=== PATIENT | female | born 1945 | race Caucasian/White ===

== ENCOUNTER 2023-10-20 16:22 | Inpatient (IN) | payer MEDICARE ==
[~2023-10-20] VITALS: Ht 157.5 cm; Wt 103.9 kg
[2023-10-20 17:02] LABS: BASOPHILS # (AUTO) 0.1 K/UL (0.0-0.2); BASOPHILS % (AUTO) 0.5 % (0.0-2.0); DIFFERENTIAL COMMENT 0; EOSINOPHILS # (AUTO) 0.4 K/uL (0.0-0.7); EOSINOPHILS % (AUTO) 4.5 % (0.0-7.0); HEMATOCRIT 41.5 % (31.2-41.9); HEMOGLOBIN 13.5 g/dL (10.9-14.3); LYMPHOCYTES # (AUTO) 1.6 K/uL (0.8-4.8); LYMPHOCYTES % (AUTO) 16.7 % (20.5-51.5); MEAN CORPUSCULAR HEMOGLOBIN 25.5 uug (24.7-32.8); MEAN CORPUSCULAR HGB CONC 33 g/dL (32.3-35.6); MEAN CORPUSCULAR VOLUME 78.7 fL (75.5-95.3); MONOCYTES # (AUTO) 0.5 K/uL (0.1-1.30); MONOCYTES % (AUTO) 5.4 % (0.0-11.0); NEUTROPHILS # (AUTO) 7.1 K/uL (1.8-8.9); NEUTROPHILS % (AUTO) 72.9 % (38.5-71.5); PLATELET COUNT (AUTO) 338 K/uL (179-408); RED BLOOD CELL COUNT(AUTO) 5.28 MIL/uL (3.63-4.92); RED CELL DISTRIBUTION WIDTH 21.7 % (12.3-17.7); WHITE BLOOD COUNT (AUTO) 9.7 K/uL (3.8-11.8)
[2023-10-20 17:21] LABS: ALANINE AMINOTRANSFERASE 17 U/L (14-59); ALKALINE PHOSPHATASE 92 U/L (50-136); ASPARTATE AMINOTRANSFERASE 17 U/L (15-37); BILIRUBIN,DIRECT 0.1 mg/dL (0.0-0.2); BILIRUBIN,TOTAL 0.7 mg/dL (0.2-1.0); CALCIUM 8.6 mg/dL (8.5-10.1); CARBON DIOXIDE 26 mmol/L (21-32); CHLORIDE 108 mmol/L (98-107); CREATININE 0.9 mg/dL (0.6-1.3); GLUCOSE 141 mg/dL (74-106); POTASSIUM 4.2 mmol/L (3.5-5.1); SODIUM SERUM 142 mmol/L (136-145); TOTAL PROTEIN, SERUM 7.1 g/dL (6.4-8.2); UREA NITROGEN, BLOOD 11 mg/dL (7-18)
[2023-10-20] MEDS ORDERED: FAMO10TA41 PO (17:24)
[2023-10-20] MEDS ORDERED: NA P133E RC (17:24)
[2023-10-20] MEDS ORDERED: BISA10SU61 RC (17:24)
[2023-10-20] MEDS ORDERED: MAGN400O6 PO (17:24)
[2023-10-20] MEDS ORDERED: MULT-594 PO (17:24)
[2023-10-20] MEDS ORDERED: ACET325T53 PO (17:24)
[2023-10-20] MEDS ORDERED: CHOL200010 PO (17:24)
[2023-10-20] MEDS ORDERED: QUET50TA PO (17:24)
[2023-10-20] MEDS ORDERED: ATOR10TA PO (17:24)
[2023-10-20] MEDS ORDERED: ACET-2030 PO (17:24)
[2023-10-20] MEDS ORDERED: ASCO500T10 PO (17:24)
[2023-10-20] MEDS ORDERED: FERR325T30 PO (17:24)
[2023-10-20] MEDS ORDERED: HALO50AM2 IM (17:24)
[2023-10-20 17:38] LABS: ETHANOL < 3 MG/DL (0-10)
[2023-10-20] MEDS ORDERED: MAGNESIUM HYDROXIDE 30 ML LIQUID UDC PO PRN ×2 (18:15→20:30)
[2023-10-20] MEDS ORDERED: ACETAMINOPHEN ES 500 MG TABLET- SA PATIENTS-PAIN ONLY PO PRN (18:15)
[2023-10-20] MEDS ORDERED: ACETAMINOPHEN 325 MG TABLET-SA PATIENTS-PAIN ONLY PO PRN (18:15)
[2023-10-20 19:23] LABS: *BILIRUBIN,URIN NEGATIVE (NEGATIVE); *BLOOD, URINE NEGATIVE (NEGATIVE); *CLARITY,URINE CLEAR (CLEAR); *COLOR,URINE YELLOW (YELLOW); *KETONES,URINE NEGATIVE (NEGATIVE); *PROTEIN,URINE NEGATIVE (NEGATIVE); *UROBILINOGEN,URINE 0.2 E.U./dl (NORMAL); NITRITE, URINE NEGATIVE (NEGATIVE); UGLUCOSE NEGATIVE (NEGATIVE)
[2023-10-20 19:27] LABS: LEUKOCYTE ESTERASE ,URINE NEGATIVE (NEGATIVE)
[2023-10-20 19:41] LABS: *AMPHETAMINE, URINE NEGATIVE (NEGATIVE); *BARBITURATE, URINE NEGATIVE (NEGATIVE); *BENZODIAZEPINE, URINE NEGATIVE (NEGATIVE); *CANNABINOID, URINE NEGATIVE (NEGATIVE); *COCCAINE, URINE NEGATIVE (NEGATIVE); *OPIATE, URINE NEGATIVE (NEGATIVE); *PHENCYCLIDINE SCREEN,URINE NEGATIVE (NEGATIVE); FENTANYL, URINE NEGATIVE (NEGATIVE)
[2023-10-20] MEDS ORDERED: ACETAMINOPHEN 325 MG TABLET PO PRN (20:30)
[2023-10-20] MEDS ORDERED: MAG HYDROX/AL HYDROX/SIMETH 30 ML LIQUID UDC PO PRN (20:30)
[2023-10-20] MEDS: ATORVASTATIN 10 MG TABLET PO SCH (21:00)
[2023-10-20 21:08] VITALS: BP 137/68; TEMP 98.7; O2SAT 96
[2023-10-20] MEDS: BLOOD SUGAR DIAGNOSTIC 1 EACH STRIP VI ONE (22:13)
[2023-10-21] MEDS: TEMAZEPAM 7.5 MG CAPSULE PO PRN (00:57)
[2023-10-21 07:55] VITALS: BP 111/57; TEMP 98.3; O2SAT 98
[2023-10-21] MEDS ORDERED: Medication Not On Formulary EA (Cholecalciferol (Vitamin D3) (Vitamin D3) 1 CAP) PO SCH (09:00)
[2023-10-21] MEDS ORDERED: Medication Not On Formulary EA (Multivitamins (Multivitamin) 1 TAB) PO SCH (09:00)
[2023-10-21] MEDS ORDERED: FAMOTIDINE 20 MG PO SCH (09:00)
[2023-10-21] MEDS: CHOLECALCIFEROL 1,000 UNIT TABLET PO SCH (09:14)
[2023-10-21] MEDS: ASCORBIC ACID 500 MG TABLET PO SCH (09:14)
[2023-10-21] MEDS: FAMOTIDINE 20 MG TABLET PO SCH (09:14)
[2023-10-21] MEDS ORDERED: ACETAMINOPHEN ES 500 MG TABLET PO PRN ×3 (11:45→16:00)
[2023-10-21] MEDS ORDERED: ACETAMINOPHEN 325 MG TABLET PO PRN (12:00)
[2023-10-21] MEDS ORDERED: ACET-2030 PO (14:54)
[2023-10-21 16:31] VITALS: BP 126/65; TEMP 98.2; O2SAT 98
[2023-10-21] MEDS: QUETIAPINE FUMARATE 25 MG TABLET PO SCH ×2 (17:51→20:24)
[2023-10-21 20:00] VITALS: BP 161/83; TEMP 98.1; O2SAT 95
[2023-10-21 20:15] VITALS: BP 142/77
[2023-10-21] MEDS: OLANZAPINE 10 MG VIAL IM ONE (20:51)
[2023-10-22 07:30] VITALS: BP 142/77
[2023-10-22] MEDS: MULTIVITAMINS,THERAPEUTIC TABLET PO SCH (08:38)
[2023-10-22] MEDS: DIVALPROEX SPRINKLE 125 MG CAP.SPRINK PO SCH (13:00)
[2023-10-22] MEDS: QUETIAPINE FUMARATE 25 MG TABLET PO SCH (13:00)
[2023-10-22 15:16] VITALS: BP 142/77
[2023-10-22] MEDS: CLOTRIMAZOLE 1% CREAM 30 GM TUBE TOP SCH (16:42)
[2023-10-22 21:05] VITALS: BP 120/58; TEMP 98
[2023-10-22 23:06] VITALS: O2SAT 98
[2023-10-23] MEDS: DIVALPROEX SPRINKLE 125 MG CAP.SPRINK PO SCH (12:55)
[2023-10-23 20:00] VITALS: BP 138/75; TEMP 97.5; O2SAT 92
[2023-10-23] MEDS: LORAZEPAM 1 MG TABLET PO PRN (20:23)
[2023-10-24 09:00] VITALS: BP 108/57; TEMP 98; O2SAT 98
[2023-10-24 20:00] VITALS: BP 111/68; TEMP 98.1; O2SAT 98
[2023-10-25 07:54] VITALS: BP 116/51; TEMP 98; O2SAT 96
[2023-10-25] MEDS: REMEDY ESSENTIAL ZINC PASTE 113 GM TOP SCH (08:33)
[2023-10-25 15:08] VITALS: BP 113/55; TEMP 98; O2SAT 98
[2023-10-25 20:00] VITALS: BP 138/79; TEMP 98.1; O2SAT 97
[2023-10-26 07:54] VITALS: BP 122/63; TEMP 98.1; O2SAT 97
[2023-10-26 16:12] VITALS: BP 121/72; TEMP 98.1; O2SAT 96
[2023-10-26 20:18] VITALS: BP 119/53; TEMP 98.2; O2SAT 99
[2023-10-27 09:06] VITALS: BP 112/65; TEMP 97.9; O2SAT 97
[2023-10-27 16:00] VITALS: BP 130/65; TEMP 97.9; O2SAT 96
[2023-10-27 20:00] VITALS: BP 111/66; TEMP 97.9; O2SAT 95
[2023-10-28 08:18] VITALS: BP 108/58; TEMP 98.4; O2SAT 97
[2023-10-28 16:32] VITALS: BP 122/62; TEMP 98.2; O2SAT 97
[2023-10-28 20:00] VITALS: BP 108/76; TEMP 98; O2SAT 98
[2023-10-29 07:48] VITALS: BP 128/71; TEMP 98; O2SAT 98
[2023-10-29 15:44] VITALS: BP 123/71; TEMP 98; O2SAT 98
[2023-10-29 20:00] VITALS: BP_SYST 106; BP_SYST 134; BP_DIAS 64; BP_DIAS 66; BP_DIAS 77; TEMP 97.7; TEMP 97.8; TEMP 98.1; O2SAT 95; O2SAT 97
[2023-10-30 03:45] VITALS: BP 160/89; TEMP 97.2; O2SAT 95
[2023-10-30 08:05] VITALS: BP 145/63; TEMP 98.2; O2SAT 98
[2023-10-30 15:42] VITALS: BP 136/61; TEMP 98.2; O2SAT 98
[2023-10-30 19:45] VITALS: BP 140/64; TEMP 98.1; O2SAT 96
[2023-10-30] MEDS: DIVALPROEX 250 MG TABLET.DR PO SCH (20:07)
[2023-10-31 08:00] VITALS: BP 142/63; TEMP 98.2; O2SAT 98
[2023-10-31] MEDS: risperiDONE 0.25 MG TABLET PO SCH (13:25)
[2023-10-31 15:15] VITALS: BP 136/66; TEMP 98.2; O2SAT 91
[2023-10-31 19:54] VITALS: BP 140/64; TEMP 98.1; O2SAT 93
[2023-11-01 07:30] VITALS: BP 142/65; TEMP 98.4; O2SAT 94
[2023-11-01 15:58] VITALS: BP 133/65; TEMP 98.4; O2SAT 94
[2023-11-01] MEDS: risperiDONE 0.5 MG TABLET PO SCH (17:11)
[2023-11-01 20:51] VITALS: BP 140/60; TEMP 98.3; O2SAT 92
[2023-11-02 07:31] LABS: ALANINE AMINOTRANSFERASE 11 U/L (14-59); ALBUMIN 2.9 g/dL (3.4-5.0); ALKALINE PHOSPHATASE 80 U/L (50-136); ASPARTATE AMINOTRANSFERASE 6 U/L (15-37); BILIRUBIN,TOTAL 0.7 mg/dL (0.2-1.0); CALCIUM 8.7 mg/dL (8.5-10.1); CARBON DIOXIDE 28 mmol/L (21-32); CHLORIDE 100 mmol/L (98-107); CREATININE 0.9 mg/dL (0.6-1.3); GLUCOSE 95 mg/dL (74-106); POTASSIUM 4.1 mmol/L (3.5-5.1); SODIUM SERUM 134 mmol/L (136-145); TOTAL PROTEIN, SERUM 6.7 g/dL (6.4-8.2); UREA NITROGEN, BLOOD 10 mg/dL (7-18)
[2023-11-02 07:36] VITALS: BP 129/59; TEMP 98.3; O2SAT 96
[2023-11-02 16:29] VITALS: BP 130/67; TEMP 98.1; O2SAT 96
[2023-11-02 20:00] VITALS: BP 121/55; TEMP 97.6; O2SAT 95
[2023-11-03 08:05] VITALS: BP 148/77; TEMP 98.1; O2SAT 96
[2023-11-03 16:42] VITALS: BP 123/68; TEMP 98.1; O2SAT 96
[2023-11-03 19:48] VITALS: BP 146/66; TEMP 98.1; O2SAT 96
[2023-11-04 07:35] VITALS: BP 162/75; TEMP 98.2; O2SAT 96
[2023-11-04 10:26] LABS: BASOPHILS # (AUTO) 0.1 K/UL (0.0-0.2); BASOPHILS % (AUTO) 0.8 % (0.0-2.0); EOSINOPHILS # (AUTO) 0.5 K/uL (0.0-0.7); EOSINOPHILS % (AUTO) 6.2 % (0.0-7.0); HEMATOCRIT 41.5 % (31.2-41.9); HEMOGLOBIN 13.9 g/dL (10.9-14.3); LYMPHOCYTES # (AUTO) 1.6 K/uL (0.8-4.8); LYMPHOCYTES % (AUTO) 20.6 % (20.5-51.5); MEAN CORPUSCULAR HEMOGLOBIN 26.2 uug (24.7-32.8); MEAN CORPUSCULAR HGB CONC 33 g/dL (32.3-35.6); MEAN CORPUSCULAR VOLUME 78.4 fL (75.5-95.3); MONOCYTES # (AUTO) 0.6 K/uL (0.1-1.30); MONOCYTES % (AUTO) 7.4 % (0.0-11.0); NEUTROPHILS # (AUTO) 5.1 K/uL (1.8-8.9); PLATELET COUNT (AUTO) 272 K/uL (179-408); RED CELL DISTRIBUTION WIDTH 18.8 % (12.3-17.7); WHITE BLOOD COUNT (AUTO) 7.8 K/uL (3.8-11.8)
[2023-11-04 10:41] LABS: DIFFERENTIAL COMMENT 1
[2023-11-04 10:46] LABS: ALANINE AMINOTRANSFERASE 17 U/L (14-59); ALKALINE PHOSPHATASE 80 U/L (50-136); ASPARTATE AMINOTRANSFERASE 9 U/L (15-37); BILIRUBIN,TOTAL 0.7 mg/dL (0.2-1.0); CALCIUM 8.6 mg/dL (8.5-10.1); CARBON DIOXIDE 32 mmol/L (21-32); CHLORIDE 100 mmol/L (98-107); CREATININE 0.8 mg/dL (0.6-1.3); GLUCOSE 108 mg/dL (74-106); MAGNESIUM 2.2 mg/dL (1.8-2.4); POTASSIUM 3.6 mmol/L (3.5-5.1); SODIUM SERUM 136 mmol/L (136-145); UREA NITROGEN, BLOOD 10 mg/dL (7-18)
[2023-11-04 10:49] LABS: AMMONIA < 10 umol/L (11-32)
[2023-11-04 16:06] VITALS: BP 142/75; TEMP 98; O2SAT 96
[2023-11-04 19:52] VITALS: BP 140/72; TEMP 98.1; O2SAT 95
[2023-11-05 07:38] VITALS: BP 132/84; TEMP 98; O2SAT 92
[2023-11-05] MEDS: OLANZAPINE 10 MG VIAL IM STA (14:45)
[2023-11-05 15:26] VITALS: BP 111/64; TEMP 98; O2SAT 92
[2023-11-05] MEDS: HALOPERIDOL LACTATE 5 MG/1 ML VIAL IM STA (16:50)
[2023-11-05] MEDS: LORAZEPAM 2 MG/1 ML VIAL IM STA (16:50)
[2023-11-05 20:00] VITALS: BP 135/80; TEMP 98; O2SAT 92
[2023-11-06 07:47] VITALS: BP 132/79; TEMP 98; O2SAT 91
[2023-11-06 09:04] LABS: ALANINE AMINOTRANSFERASE 11 U/L (14-59); ALBUMIN 3.1 g/dL (3.4-5.0); ALKALINE PHOSPHATASE 92 U/L (50-136); ASPARTATE AMINOTRANSFERASE 12 U/L (15-37); BILIRUBIN,TOTAL 0.8 mg/dL (0.2-1.0); CALCIUM 8.7 mg/dL (8.5-10.1); CARBON DIOXIDE 26 mmol/L (21-32); CHLORIDE 99 mmol/L (98-107); CREATININE 0.9 mg/dL (0.6-1.3); GLUCOSE 91 mg/dL (74-106); MAGNESIUM 2.2 mg/dL (1.8-2.4); POTASSIUM 4.2 mmol/L (3.5-5.1); SODIUM SERUM 135 mmol/L (136-145); TOTAL PROTEIN, SERUM 7.3 g/dL (6.4-8.2); UREA NITROGEN, BLOOD 10 mg/dL (7-18); VALPROIC ACID 69 ug/mL (50-100)
[2023-11-06 09:12] LABS: BASOPHILS # (AUTO) 0.1 K/UL (0.0-0.2); BASOPHILS % (AUTO) 0.6 % (0.0-2.0); DIFFERENTIAL COMMENT 0; EOSINOPHILS # (AUTO) 0.8 K/uL (0.0-0.7); EOSINOPHILS % (AUTO) 7.7 % (0.0-7.0); HEMATOCRIT 45.5 % (31.2-41.9); HEMOGLOBIN 15.2 g/dL (10.9-14.3); LYMPHOCYTES # (AUTO) 2.1 K/uL (0.8-4.8); MEAN CORPUSCULAR HEMOGLOBIN 26.2 uug (24.7-32.8); MEAN CORPUSCULAR HGB CONC 33 g/dL (32.3-35.6); MEAN CORPUSCULAR VOLUME 78.4 fL (75.5-95.3); MONOCYTES # (AUTO) 0.8 K/uL (0.1-1.30); MONOCYTES % (AUTO) 8.2 % (0.0-11.0); NEUTROPHILS # (AUTO) 6.3 K/uL (1.8-8.9); NEUTROPHILS % (AUTO) 62.5 % (38.5-71.5); PLATELET COUNT (AUTO) 289 K/uL (179-408); RED CELL DISTRIBUTION WIDTH 18.5 % (12.3-17.7); WHITE BLOOD COUNT (AUTO) 10.1 K/uL (3.8-11.8)
[2023-11-06] MEDS: risperiDONE 0.5 MG TABLET PO SCH (09:44)
[2023-11-06] MEDS: risperiDONE 1 MG TABLET PO SCH (13:08)
[2023-11-06 15:24] VITALS: BP 103/58; TEMP 98; O2SAT 99
[2023-11-06 20:00] VITALS: BP 115/59; TEMP 97.1; O2SAT 95
[2023-11-06 21:26] LABS: *BILIRUBIN,URIN NEGATIVE (NEGATIVE); *BLOOD, URINE NEGATIVE (NEGATIVE); *CLARITY,URINE CLEAR (CLEAR); *COLOR,URINE YELLOW (YELLOW); *KETONES,URINE NEGATIVE (NEGATIVE); *PROTEIN,URINE NEGATIVE (NEGATIVE); *UROBILINOGEN,URINE 0.2 E.U./dl (NORMAL); LEUKOCYTE ESTERASE ,URINE NEGATIVE (NEGATIVE); NITRITE, URINE NEGATIVE (NEGATIVE); UGLUCOSE NEGATIVE (NEGATIVE)
[2023-11-07 07:30] VITALS: BP 131/83; TEMP 97.6; O2SAT 90
[2023-11-07] MEDS: risperiDONE 1 MG TABLET PO SCH (17:46)
[2023-11-07 20:00] VITALS: BP 119/72; TEMP 98; O2SAT 92
[2023-11-07 20:30] VITALS: BP 145/58; TEMP 97.8; O2SAT 95
[2023-11-08 15:06] VITALS: BP 131/63; TEMP 98.4; O2SAT 96
[2023-11-08 20:00] VITALS: BP 110/52; TEMP 97.6; O2SAT 96
[2023-11-09 07:53] VITALS: BP 125/55; TEMP 98.1; O2SAT 96
[2023-11-09 12:41] LABS: BASOPHILS # (AUTO) 0.3 K/UL (0.0-0.2); BASOPHILS % (AUTO) 2.7 % (0.0-2.0); EOSINOPHILS % (AUTO) 9.2 % (0.0-7.0); HEMATOCRIT 45.2 % (31.2-41.9); HEMOGLOBIN 14.4 g/dL (10.9-14.3); LYMPHOCYTES % (AUTO) 9.6 % (20.5-51.5); MEAN CORPUSCULAR HEMOGLOBIN 25.3 uug (24.7-32.8); MEAN CORPUSCULAR HGB CONC 32 g/dL (32.3-35.6); MEAN CORPUSCULAR VOLUME 79.5 fL (75.5-95.3); MONOCYTES # (AUTO) 0.8 K/uL (0.1-1.30); MONOCYTES % (AUTO) 7.7 % (0.0-11.0); NEUTROPHILS # (AUTO) 7.4 K/uL (1.8-8.9); NEUTROPHILS % (AUTO) 70.8 % (38.5-71.5); PLATELET COUNT (AUTO) 307 K/uL (179-408); RED BLOOD CELL COUNT(AUTO) 5.68 MIL/uL (3.63-4.92); RED CELL DISTRIBUTION WIDTH 18.6 % (12.3-17.7); WHITE BLOOD COUNT (AUTO) 10.4 K/uL (3.8-11.8)
[2023-11-09 12:43] LABS: DIFFERENTIAL COMMENT 1
[2023-11-09 14:33] LABS: BAND % (MANUAL) 1 % (0-10); EOSINOPHILS % (MANUAL) 7 % (0-8); LYMPHOCYTES % (MANUAL) 11 % (20-40); MONOCYTES % (MANUAL) 6 % (2-10); NEUTROPHILS % (MANUAL) 75 % (42-75); PLATELET ESTIMATE ADEQUATE
[2023-11-09 14:34] LABS: ANISOCYTOSIS 1+; TEAR DROP CELLS 1+
[2023-11-09 16:43] VITALS: BP 122/53; TEMP 98; O2SAT 96
[2023-11-09 20:00] VITALS: BP 122/69; TEMP 97.5; O2SAT 91
[2023-11-10 08:39] VITALS: BP 135/70; TEMP 97.6; O2SAT 96
[2023-11-10 15:57] VITALS: BP 107/59; TEMP 97.9; O2SAT 96
[2023-11-10 19:57] VITALS: BP 102/58; TEMP 98.1; O2SAT 95
[2023-11-11 07:41] LABS: ALANINE AMINOTRANSFERASE 11 U/L (14-59); ALBUMIN 2.6 g/dL (3.4-5.0); ALKALINE PHOSPHATASE 76 U/L (50-136); ASPARTATE AMINOTRANSFERASE 9 U/L (15-37); BILIRUBIN,TOTAL 0.5 mg/dL (0.2-1.0); CALCIUM 8.5 mg/dL (8.5-10.1); CARBON DIOXIDE 31 mmol/L (21-32); CHLORIDE 102 mmol/L (98-107); CREATININE 0.9 mg/dL (0.6-1.3); GLUCOSE 91 mg/dL (74-106); POTASSIUM 4.1 mmol/L (3.5-5.1); SODIUM SERUM 138 mmol/L (136-145); TOTAL PROTEIN, SERUM 6.2 g/dL (6.4-8.2); UREA NITROGEN, BLOOD 10 mg/dL (7-18); VALPROIC ACID 83 ug/mL (50-100)
[2023-11-11 07:49] VITALS: BP 139/79; TEMP 97.8; O2SAT 96
[2023-11-11] MEDS ORDERED: CLOT30CR24 TOP ×2 (10:27→10:36)
== END 2023-11-11 11:30 | DRG 885 ==
LOC: ER 16:24 → GPS 20:11
PROVIDERS: ADMIT Psychiatry & Neurology Psychosomatic Medicine; ATTEND Nurse Practitioner Acute Care
DX: F29 Unspecified psychosis not due to a substance or known physiological condition (principal); E44.0 Moderate protein-calorie malnutrition; Z68.41 Body mass index [BMI] 40.0-44.9, adult; R45.851 Suicidal ideations; G93.40 Encephalopathy, unspecified; F39 Unspecified mood [affective] disorder; E86.1 Hypovolemia; E66.9 Obesity, unspecified; E78.5 Hyperlipidemia, unspecified; K21.9 Gastro-esophageal reflux disease without esophagitis; Z79.899 Other long term (current) drug therapy; Z91.148 Patient's other noncompliance with medication regimen for other reason; Z91.199 Patient's noncompliance with other medical treatment and regimen due to unspecified reason; E66.01 Morbid (severe) obesity due to excess calories; R41.9 Unspecified symptoms and signs involving cognitive functions and awareness
CPT/HCPCS: 36415; 70030-TC; 71045; 80164; 83735; 85025; G0480; J1630; J2060; J2358; J3490